=== PATIENT | female | born 1960 | race Native Hawaiian/Other Pacific Islander ===

== ENCOUNTER 2020-03-04 19:15 | Emergency (ER) | payer OTHER ==
[~2020-03-04] VITALS: Ht 167.6 cm; Wt 62.6 kg
[2020-03-04 20:48] LABS: PLATELET COUNT 259 K/uL (152-353)
[2020-03-04 20:49] LABS: POTASSIUM 3.8 mmol/L (3.6-5.2)
[2020-03-04 21:00] LABS: PARTIAL THROMBOPLASTIN TIME 27.4 SECONDS (24.5-33.6)
[2020-03-04 21:56] VITALS: BP 151/78; TEMP 98.7
== END 2020-03-04 21:56 | disposition home or self-care (01) ==
LOC: ED 19:15
PROVIDERS: Hospitalist
DX: L03.113 Cellulitis of right upper limb (principal); W22.8XXA Striking against or struck by other objects, initial encounter; Y92.89 Other specified places as the place of occurrence of the external cause
CPT/HCPCS: 80048; 85027; 85610; 85730; 87040; 96365; 96376; 99284; J1885; J3370

== ENCOUNTER 2023-01-09 18:56 | Emergency (ER) | payer OTHER ==
[~2023-01-09] VITALS: Ht 167.6 cm; Wt 59.0 kg
[2023-01-10 02:35] VITALS: BP 130/78; TEMP 98
== END 2023-01-10 02:35 | disposition home or self-care (01) ==
LOC: ED 18:56
PROC: 0CQ00ZZ Repair Upper Lip, Open Approach (ICD-10-PCS; principal; 2023-01-09)
PROC: 0HQ1XZZ Repair Face Skin, External Approach (ICD-10-PCS; 2023-01-09)
DX: S01.81XA Laceration without foreign body of other part of head, initial encounter (principal); S01.511A Laceration without foreign body of lip, initial encounter; I95.1 Orthostatic hypotension; W10.8XXA Fall (on) (from) other stairs and steps, initial encounter; Y92.098 Other place in other non-institutional residence as the place of occurrence of the external cause
CPT/HCPCS: 96374; 96375; 99284; J2270; J2405